=== PATIENT | male | born 1980 | race Caucasian/White ===

== ENCOUNTER 2022-05-09 12:55 | Emergency (ER) | payer BC, SELFPAY ==
[2022-05-09 15:30] VITALS: BP 131/70; PULSE 66; RESP 16; TEMP 36.7; O2SAT 100
--- NOTE | 2022-05-09 16:02 | ED.GENADULT ---
HPI - General Adult General Chief complaint: Allergic Reaction Stated complaint: Allergic Reaction Time Seen by Provider: 05/09/22 16:02 Source: patient Mode of arrival: ambulatory Limitations: no limitations History of Present Illness HPI narrative: 42-year-old male patient presents to the [facility] with complaints of a rash to bilateral upper extremities, trunk and back for the past month. Denies any chest pain, shortness of breath. Denies any trouble swallowing. Patient states he thinks that it was due to a new detergent that he was trying. Patient states that the rash started right after he bought some new detergent that was on sale. Patient noticed that he was getting a rash and decided to stop using the detergent couple weeks ago and we wash all his clothes but patient states the kit that the rash is continued and continued to get worse. Patient states she tried using [id number] hydrocortisone cream and Benadryl which has not helped. Related Data Allergies Allergy/AdvReac Type Severity Reaction Status Date / Time BEE STINGS Allergy Mild Unknown Uncoded 05/09/22 15:26 Review of Systems Review of Systems: CONSTITUTIONAL: Denies fever, chills, or sweats. EYES: Denies visual changes, redness, or discharge. ENT: Denies rhinorrhea, congestion, sore throat, or otalgia. CARDIOVASCULAR: Denies chest pain, palpitations, or edema. RESPIRATORY: Denies cough or dyspnea. GASTROINTESTINAL: Denies abdominal pain, nausea, vomiting, or diarrhea. GENITOURINARY: Denies dysuria or hematuria. SKIN: Positive rash or itching to bilateral upper extremities, trunk and back x1 month MUSCULOSKELETAL: Denies back pain, joint pain, or myalgia. NEUROLOGIC: Denies headache, numbness, or weakness. PSYCHIATRIC: Denies anxiety or depression. PMFSH Social History Social History Smoking status: Heavy tobacco smoker Alcohol intake: current Exam Narrative: GENERAL: Well-appearing, well-nourished, and in no acute distress. HEAD: Normocephalic, atraumatic. EYES: PERRLA and EOMI. ENT: Nares clear, no rhinorrhea or epistaxis. Mucous membranes moist. NECK: Supple. No lymphadenopathy CHEST: Clear to auscultation. No respiratory distress. HEART: Regular rate and rhythm. No murmur heard. Normal peripheral pulses. ABDOMEN: Soft, nontender, nondistended, normal active bowel sounds. EXTREMITIES: Normal range of motion. No edema. SKIN: Patient has inflammation of the skin erythematous wheals and macules to bilateral upper extremities, trunk and back. Patient does complain of itching to the areas. NEURO: No focal deficits. Alert and oriented x3. Course Course Level of Care: Express Care Visit Vital Signs Vital signs: Vital Signs Temperature 36.7 C 05/09/22 15:30 Pulse Rate 66 05/09/22 15:30 Respiratory Rate 16 05/09/22 15:30 Blood Pressure 131/70 05/09/22 15:30 Pulse Oximetry 100 05/09/22 15:30 Oxygen Delivery Room Air 05/09/22 15:30 Temperature 36.7 C 05/09/22 15:30 Pulse Rate 66 05/09/22 15:30 Respiratory Rate 16 05/09/22 15:30 Blood Pressure 131/70 05/09/22 15:30 Pulse Oximetry 100 05/09/22 15:30 Oxygen Delivery Room Air 05/09/22 15:30 Vital signs reviewed. Medical Decision Making MDM Narrative Medical decision making narrative: Discussed with patient that this does appear like some type of contact dermatitis. Discussed with patient that since he has tried multiple [id number] remedies and the rash continued to get worse over a month we will go ahead and do oral steroids. Discussed with him that he will be on a taper dose for the next couple of weeks and I will also give him some topical cream that he can put on for the itching. Patient verbalized understanding of this denies any other questions or concerns at this time. Differential Diagnosis Differential Diagnosis: Differential diagnosis: Contact dermatitis, poison margaret, poison sumac, psoriasis, eczema, allergic reaction, drug re
== END 2022-05-09 16:18 | disposition home or self-care (01) ==
PROVIDERS: Emergency Provider Nurse Practitioner Family
DX: L50.9 Urticaria, unspecified (principal); L25.9 Unspecified contact dermatitis, unspecified cause; F17.290 Nicotine dependence, other tobacco product, uncomplicated
CPT/HCPCS: 99213; G0463